=== PATIENT | male | born 1995 | race Caucasian/White ===

== ENCOUNTER 2021-04-01 17:36 | Inpatient (IN) | payer BC ==
[2021-04-01 18:41] VITALS: BMI 33.6
[2021-04-01] MEDS ORDERED: MAGNESIUM CITRATE 300 ML BOTTLE PO PRN (23:22)
[2021-04-01] MEDS ORDERED: METHOCARBAMOL 500 MG TABLET PO PRN (23:22)
[2021-04-01] MEDS ORDERED: ONDANSETRON *ODT* 4 MG TABLET SL PRN (23:22)
[2021-04-01] MEDS ORDERED: ACETAMINOPHEN 325 MG TABLET (FP) PO PRN ×2 (23:22)
[2021-04-01] MEDS ORDERED: NICOTINE POLACRILEX 2 MG GUM BUC PRN (23:22)
[2021-04-01] MEDS ORDERED: IBUPROFEN 400 MG TABLET (FP) PO PRN (23:22)
[2021-04-01] MEDS ORDERED: BISMUTH SUBSALICYLATE 524 MG/30 ML PO PRN (23:22)
[2021-04-01] MEDS ORDERED: MAG HYDROX/AL HYDROX/SIMETH 30 ML UNIT-DOSE CUP PO PRN (23:22)
[2021-04-01] MEDS ORDERED: MENTHOL/PHENOL 1 EACH UD MM PRN (23:22)
[2021-04-02] MEDS: PRENATAL VITAMINS W/ FOLIC ACID TABLET (FP) PO SCH (10:49)
[2021-04-02] MEDS: NICOTINE 14 MG/24 HOURS TOPICAL PATCH TD SCH (10:49)
[2021-04-02 11:04] LABS: HEMATOCRIT 48.6 % (35.4-49); HEMOGLOBIN 16.6 GM/dL (11.7-16.9); MCH 30.4 pg (25.7-33.7); MCHC 34.2 g/dl (32.0-35.9); MEAN CELL VOLUME 88.9 fl (80-96); MEAN PLT VOLUME 9.9 fl (7.5-11.1); PLATELET COUNT 214 10^3/uL (134-434); RBC 5.47 M/mm3 (4.00-5.60); RDW 12.9 % (11.9-15.9)
[2021-04-02 11:21] LABS: ALBUMIN 3.8 g/dl (3.4-5.0); BLOOD UREA NITROGEN 11.7 mg/dL (7-18)
[2021-04-02] MEDS ORDERED: diazePAM 5 MG TABLET PO PRN (11:21)
[2021-04-02 11:23] LABS: BILIRUBIN,TOTAL 0.8 mg/dL (0.2-1); TOT PROT 6.8 g/dl (6.4-8.2)
[2021-04-02 11:24] LABS: CREATININE 0.8 mg/dL (0.55-1.3)
[2021-04-02] MEDS: diazePAM 5 MG TABLET PO SCH ×3 (12:30→22:04)
[2021-04-02] MEDS ORDERED: MELATONIN 5 MG TABLETS PO SCH (22:00)
[2021-04-02] MEDS: THIAMINE HCL 100 MG TABLET (FP) PO SCH (22:04)
[2021-04-02] MEDS: SUVOREXANT 10 MG TABLET PO PRN (22:07)
[2021-04-03] MEDS: diazePAM 5 MG TABLET PO SCH ×3 (05:40→22:10)
[2021-04-03] MEDS: MAGNESIUM HYDROX 2400MG/30ML ORAL SUSPENSION 30 ML CUP PO PRN ×2 (05:42→15:50)
[2021-04-03] MEDS: NICOTINE 14 MG/24 HOURS TOPICAL PATCH TD SCH (10:50)
[2021-04-03] MEDS: PRENATAL VITAMINS W/ FOLIC ACID TABLET (FP) PO SCH (10:50)
[2021-04-03] MEDS: diazePAM 5 MG TABLET PO PRN ×2 (10:51→17:36)
[2021-04-03] MEDS: THIAMINE HCL 100 MG TABLET (FP) PO SCH (22:09)
[2021-04-03] MEDS: SUVOREXANT 10 MG TABLET PO PRN (22:10)
[2021-04-04] MEDS: diazePAM 5 MG TABLET PO SCH ×2 (05:47→17:33)
[2021-04-04] MEDS: PRENATAL VITAMINS W/ FOLIC ACID TABLET (FP) PO SCH (10:22)
[2021-04-04] MEDS: NICOTINE 14 MG/24 HOURS TOPICAL PATCH TD SCH (10:22)
[2021-04-04] MEDS: SUVOREXANT 10 MG TABLET PO PRN (22:23)
[2021-04-04] MEDS: THIAMINE HCL 100 MG TABLET (FP) PO SCH (22:24)
[2021-04-05] MEDS ORDERED: diazePAM 5 MG TABLET PO ONE (06:00)
[2021-04-05] MEDS: NICOTINE 14 MG/24 HOURS TOPICAL PATCH TD SCH (10:33)
[2021-04-05] MEDS: PRENATAL VITAMINS W/ FOLIC ACID TABLET (FP) PO SCH (10:33)
[2021-04-05 10:55] VITALS: BP 151/87; PULSE 64; TEMP 98.1
== END 2021-04-05 10:44 | disposition home or self-care (01) | DRG 774 ==
LOC: YASAS 17:36 → Y6N 04-02 00:10
PROVIDERS: ADMIT Allergy & Immunology; ATTEND Allergy & Immunology
PROC: HZ2ZZZZ Detoxification Services for Substance Abuse Treatment (ICD-10-PCS; principal; 2021-04-02)
DX: F10.230 Alcohol dependence with withdrawal, uncomplicated (principal); F14.20 Cocaine dependence, uncomplicated; F17.210 Nicotine dependence, cigarettes, uncomplicated; F19.282 Other psychoactive substance dependence with psychoactive substance-induced sleep disorder; F19.24 Other psychoactive substance dependence with psychoactive substance-induced mood disorder; F41.9 Anxiety disorder, unspecified; F32.9 Major depressive disorder, single episode, unspecified; J45.909 Unspecified asthma, uncomplicated; G40.89 Other seizures; Z62.810 Personal history of physical and sexual abuse in childhood
CPT/HCPCS: 36415; 80053; 85027; 86780; 93005; 93010; C9803; U0003; U0005